=== PATIENT | female | born 1960 ===

== ENCOUNTER 2019-03-01 09:17 | Day surgery (SDC) | payer BC, OTHER ==
[~2019-03-01 09:17] MED LIST: Buffered Lidocaine 1% SYRIN* 1 ML/SYRINGE INTRADERM ONE; Lactated Ringers 1000 ML Bag* 1,000 ML IV SCH
[2019-03-01] MEDS ORDERED: Buffered Lidocaine 1% SYRIN* 1 ML/SYRINGE INTRADERM ONE (09:26)
[2019-03-01] MEDS ORDERED: ceFAZolin 2 GM in NS PREMIX(*) 2 GM/100 ML BAG IVPB ONE (09:26)
[2019-03-01] MEDS ORDERED: Lidocaine 1% INJ* 10 MG/ML 30 ML SDV ONE (11:13)
[2019-03-01] MEDS ORDERED: Bupivacaine 0.5% W/EPI SDV* 10 ML VIAL INJ ONE (11:13)
[2019-03-01] MEDS ORDERED: fentaNYL* 50 MCG/ML 2 ML VIAL (100 MCG VIAL) ONE (11:30)
[2019-03-01] MEDS ORDERED: Midazolam* 1 MG/ML 5 ML VIAL (5 MG) ONE (11:30)
[2019-03-01] MEDS ORDERED: Ketorolac INJ* 30 MG/ML 1 ML VIAL ONE (11:31)
[2019-03-01] MEDS ORDERED: Ondansetron INJ* 2 MG/ML VIAL ONE ×2 (11:31→13:24)
[2019-03-01] MEDS ORDERED: Propofol* 10 MG/ML 20 ML BTL ONE (11:31)
[2019-03-01] MEDS ORDERED: Bupivacaine 0.5%* 50 ML MDV VIAL ONE (11:41)
[2019-03-01] MEDS ORDERED: Naloxone* 0.4 MG/ML 1 ML VIAL IV PRN (12:07)
[2019-03-01] MEDS ORDERED: DiMENhydriNATE IV* 50 MG/ML VIAL IV PUSH PRN (12:07)
[2019-03-01] MEDS ORDERED: fentaNYL* 50 MCG/ML 2 ML VIAL (100 MCG VIAL) IV PRN (12:07)
[2019-03-01] MEDS ORDERED: Ondansetron INJ* 2 MG/ML VIAL IV PRN (12:07)
[2019-03-01] MEDS ORDERED: oxyCODONE/Acetamin 5/325 MG* TAB PO PRN (12:07)
[2019-03-01] MEDS ORDERED: Lidocaine 2% PF * 5 ML VIAL ONE (12:08)
[2019-03-01] MEDS ORDERED: Dexamethasone IV* 4 MG/ML 1 ML (4 MG) ONE (12:12)
[2019-03-01 13:01] VITALS: BP 126/62
[2019-03-01] MEDS ORDERED: oxyCODONE/Acetamin 5/325 MG* TAB ONE (13:23)
--- NOTE | 2019-03-01 22:01 | OP ---
DATE OF OPERATION: 03/01/19 - [facility] DATE OF : 64 SURGEON: Urban López MD. SENIOR ANALYSIS SPECIALIST: Nany Beard NP. ANESTHESIOLOGIST: Dr. Hansen. ANESTHESIA: Local with monitored anesthesia care. PRE-OP DIAGNOSIS: Right inguinal hernia. POST-OP DIAGNOSIS: Right indirect inguinal hernia. OPERATIVE PROCEDURE: Open repair of right indirect inguinal hernia with polypropylene mesh. ESTIMATED BLOOD LOSS: Minimal. WOUND CLASSIFICATION: I. COMPLICATIONS: None. DRAINS: None. SPECIMENS: None. DESCRIPTION OF PROCEDURE: Written informed consent was obtained. The right groin was marked with indelible ink and preoperative antibiotics were administered. The patient was taken to the operating room and placed in the supine position. Sequential compression devices and a warming blanket were applied. Anesthesia was administered, and the lower right abdomen and groin were prepped and draped in the usual sterile fashion. Time-out verification was completed. Marcaine 0.25% plain was then infiltrated in the right groin and an oblique incision was made several fingerbreadths above the inguinal crease and carried down through Iggy's fascia. We were able to identify the external oblique aponeurosis and the external ring, and there appeared to be a fat-containing hernia protruding down towards the labia. The external oblique aponeurosis was opened in the direction of its fibers, and I did divide any nerves and the round ligament as they extended through the inguinal floor extending down towards the labia. This appeared to be an indirect hernia, and this was easily reduced, and an oval-shaped piece of polypropylene mesh was then sutured to the pubic tubercle medially, the conjoint tendon superiorly, and the inguinal ligament inferiorly with a running 0 Vicryl suture. This covered the direct and indirect space well and was under no tension with a generous overlap, especially under the anterior and lateral abdominal wall. Hemostasis was assured. Additional Marcaine was infiltrated. The external oblique aponeurosis was closed with a running 3-0 Vicryl suture. Iggy's fascia was closed with a running 3-0 Vicryl suture. The skin was approximated with a subcuticular 4-0 Vicryl suture. Steri-Strips and sterile dressings were applied. The patient tolerated the procedure well and was taken to the recovery room in stable condition. [id number]/[facility] #: [id number] [place]
== END 2019-03-01 14:07 | disposition home or self-care (01) ==
LOC: OR 09:17
PROVIDERS: ATTEND Surgery
DX: K40.90 Unilateral inguinal hernia, without obstruction or gangrene, not specified as recurrent (principal); Z72.0 Tobacco use
CPT/HCPCS: A9270-GY; C1781; J0690; J1100; J1885; J2250; J2405; J2704; J3010; J3490